=== PATIENT | female | born 1990 | race Caucasian/White ===

== ENCOUNTER 2017-10-26 00:18 | Emergency (ER) | payer OTHER ==
[~2017-10-26] VITALS: Ht 165.1 cm; Wt 54.4 kg
[2017-10-26 00:21] VITALS: BP 106/59
--- NOTE | 2017-10-26 00:25 | NUR ---
PATIENT AMBULATED TO ER BED 5.
--- NOTE | 2017-10-26 00:27 | NUR ---
PATIENT IS A 27 Y/O FEMALE WHO PRESENTS TO THE ED C/O ABD PAIN. PT STATES THAT SHE RAN INTO A DOORFRAME AT [facility] AT 1400. PT REPORTS 7/10 ACHING LLQ PAIN THAT DOES NOT RADIATE. NO OBVIOUS TRAUMA, DEFORMITY OR BLEEDING NOTED. PT DENIES CP, SOB, REPORTS NAUSEA DENIES VOMITING/DIARRHEA. PT AAOX4, RR EVEN/UNLABORED. PT REPOSITIONED FOR COMFORT, BED IN LOWEST POSITION. ER MD DR. GODFREY NOTIFIED. WILL CONTINUE TO MONITOR.
[2017-10-26] MEDS ORDERED: IBUPROFEN 800 MG TAB PO ONE (01:15)
[2017-10-26 02:00] VITALS: BP 111/67
--- NOTE | 2017-10-26 02:00 | NUR ---
Patient discharged with v/s stable. Written and verbal after care instructions given and explained. Patient alert, oriented and verbalized understanding of instructions. Ambulatory with steady gait. All questions addressed prior to discharge. ID band removed. Patient advised to follow up with PMD. Rx of TRAMADOL AND MOTRIN given. Patient educated on indication of medication including possible reaction and side effects. Opportunity to ask questions provided and answered.
== END 2017-10-26 02:00 | disposition home or self-care (01) ==
LOC: MED 00:18
DX: S39.011A Strain of muscle, fascia and tendon of abdomen, initial encounter (principal); Z91.010 Allergy to peanuts; W22.09XA Striking against other stationary object, initial encounter; Y92.89 Other specified places as the place of occurrence of the external cause; Y93.89 Activity, other specified; Y99.8 Other external cause status
CPT/HCPCS: 76856; 99284; Q0092